=== PATIENT | female | born 1955 | race Caucasian/White ===

== ENCOUNTER 2024-08-31 10:59 | Inpatient (IN) ==
[2024-08-31 11:53] LABS: INR 1.04 (0.85-1.14)
[2024-08-31 12:06] LABS: ABS Lymphocytes 0.6 10^3/uL (1.0-4.8); ABS Monocytes 0.4 10^3/uL (0.0-0.9); ABS Neutrophils 6.3 10^3/uL (1.5-7.6); Eosinophil % 0.2 %; Hemoglobin 5.9 g/dL (11.5-14.3); Lymphocyte % 7.7 %; Mean Corpuscular Hemoglobin 23.7 pg (27-33); Mean Corpuscular Hgb Conc 31.1 g/dL (31-36); Mean Corpuscular Volume 76.1 fL (80-97); Platelet Count 301 10^3/uL (150-450); Red Cell Distribution Width 17.2 % (12-17); White Blood Count 7.3 10^3/uL (3.8-11.8)
[2024-08-31 12:08] LABS: Albumin 3.6 g/dL (3.2-5.2); Calcium 8.7 mg/dL (8.6-10.3); Creatinine, Serum 0.8 mg/dL (0.51-0.95); Globulin 1.8 g/dL (2-4); Potassium 4.2 mmol/L (3.5-5.0); Total Bilirubin 0.3 mg/dL (0.2-1.0); Total Protein 5.4 g/dL (6.4-8.9); eGFR CKD-EPI 80.7 (>60)
[2024-08-31 13:08] LABS: High Sensitivity Troponin 1 Hr < 3 pg/mL (<15)
[2024-08-31] MEDS: Pantoprazole 80 mg in NS BAG 80 MG/250 ML BAG IV ONE (14:17)
[2024-08-31] MEDS: Pantoprazole VIAL 40 MG VIAL IV ONE (14:18)
[2024-08-31] MEDS: Iohexol 350 (CONTRAST) 500 ML MDV IV ONE (15:18)
[2024-08-31] MEDS: NS 0.9% 1000 ml BAG 1,000 ML IV SCH (15:39)
[2024-08-31 15:51] LABS: Magnesium 1.7 mg/dL (1.9-2.7)
[2024-08-31 16:05] LABS: Ferritin 15.9 ng/mL (11-307)
[2024-08-31 19:28] LABS: Hematocrit 24.1 % (35-45); Hemoglobin 7.9 g/dL (11.5-14.3)
[2024-09-01 00:35] LABS: Hematocrit 22.9 % (35-45); Hemoglobin 7.5 g/dL (11.5-14.3)
[2024-09-01 06:49] LABS: Hematocrit 22.6 % (35-45); Hemoglobin 7.4 g/dL (11.5-14.3)
[2024-09-01 09:29] LABS: Calcium 8.2 mg/dL (8.6-10.3); Creatinine, Serum 0.8 mg/dL (0.51-0.95); Magnesium 1.8 mg/dL (1.9-2.7); Potassium 3.7 mmol/L (3.5-5.0); eGFR CKD-EPI 80.7 (>60)
[2024-09-01] MEDS: PEG 3000 GI LAVAGE 1 GALLON PO ONE ×2 (10:43→20:28)
[2024-09-01] MEDS: Pantoprazole VIAL 40 MG VIAL IV SCH (10:43)
[2024-09-01] MEDS: Ferric Gluconate IV 250 MG in NS 0.9% 250 ml 200 ML IVPB SCH (16:05)
[2024-09-01 18:45] LABS: Hematocrit 23.8 % (35-45); Hemoglobin 7.7 g/dL (11.5-14.3); Mean Corpuscular Hemoglobin 25.5 pg (27-33); Mean Corpuscular Hgb Conc 32.6 g/dL (31-36); Mean Corpuscular Volume 78.2 fL (80-97); Mean Platelet Volume 8.1 fL (7.5-11.2); Platelet Count 294 10^3/uL (150-450); Red Blood Count 3.04 10^6/uL (3.63-4.92); Red Cell Distribution Width 17.5 % (12-17); White Blood Count 5.5 10^3/uL (3.8-11.8)
[2024-09-01] MEDS ORDERED: PEG 3000 GI LAVAGE 1 GALLON PO ONE (23:55)
[2024-09-02 06:28] LABS: Hematocrit 21.5 % (35-45); Mean Corpuscular Hemoglobin 25.6 pg (27-33); Mean Corpuscular Hgb Conc 32.8 g/dL (31-36); Mean Corpuscular Volume 78.2 fL (80-97); Mean Platelet Volume 8.2 fL (7.5-11.2); Platelet Count 265 10^3/uL (150-450); Red Blood Count 2.75 10^6/uL (3.63-4.92); Red Cell Distribution Width 17.4 % (12-17); White Blood Count 6.4 10^3/uL (3.8-11.8)
[2024-09-02 06:51] LABS: Calcium 8.2 mg/dL (8.6-10.3); Creatinine, Serum 0.73 mg/dL (0.51-0.95); Potassium 3.6 mmol/L (3.5-5.0); eGFR CKD-EPI 90.1 (>60)
[2024-09-02 07:57] LABS: Magnesium 1.9 mg/dL (1.9-2.7)
[2024-09-02] MEDS: Pantoprazole VIAL 40 MG VIAL IV SCH (08:45)
[2024-09-02] MEDS ORDERED: Lidocaine 2% JELLY 6 ML Topical TOPICAL ONE (15:31)
[2024-09-02 17:25] LABS: Hematocrit 22.3 % (35-45); Hemoglobin 7.2 g/dL (11.5-14.3)
[2024-09-03 06:30] LABS: Hematocrit 21.4 % (35-45); Hemoglobin 6.9 g/dL (11.5-14.3); Mean Corpuscular Hemoglobin 25.6 pg (27-33); Mean Corpuscular Hgb Conc 32.4 g/dL (31-36); Mean Corpuscular Volume 78.9 fL (80-97); Mean Platelet Volume 8.1 fL (7.5-11.2); Platelet Count 277 10^3/uL (150-450); Red Blood Count 2.71 10^6/uL (3.63-4.92); Red Cell Distribution Width 18.5 % (12-17); White Blood Count 4.1 10^3/uL (3.8-11.8)
[2024-09-03 07:59] LABS: Calcium 8.3 mg/dL (8.6-10.3); Creatinine, Serum 0.73 mg/dL (0.51-0.95); Potassium 3.5 mmol/L (3.5-5.0); eGFR CKD-EPI 90.1 (>60)
[2024-09-03 13:28] LABS: Hematocrit 26.3 % (35-45); Hemoglobin 8.7 g/dL (11.5-14.3)
[2024-09-03 13:32] VITALS: BP 121/79
== END 2024-09-03 15:50 | disposition home or self-care (01) | DRG 379 ==
LOC: ED 10:59 → EDHOLD 13:23 → SUATTDRO 13:23 → INTOOBSV 13:23 → MED 16:32
PROVIDERS: ADMIT Student in an Organized Health Care Education/Training Program; ATTEND Internal Medicine